=== PATIENT | female | born 1990 | race Caucasian/White ===

== ENCOUNTER 2019-09-14 09:31 | Outpatient (CLI) | payer OTHER, SELFPAY ==
--- NOTE | ~2019-09-14 | CT_ITS ---
EXAMINATION: CT abdomen w con EXAM DATE: 09/14/2019 10:18 INDICATION: Liver lesion, abnormal sonogram. Abdominal pain. TECHNIQUE: Spiral CT of the abdomen was performed following intravenous injection of 100 mL Omnipaque 350. Axial, coronal and sagittal images were reviewed. The dose-length product (DLP) for this exam ination was 219.33 mGy-cm. The exposure was tailored according to patient size (auto mA exposure con trol), and iterative reconstruction (ASIR) was used as additional dose reduction technique. There is no prior study for comparison. FINDINGS: Mild diffusely heterogeneous enhancement to the regions of right liver lobe, nonspecific fi nding. There are 2 subcentimeter liver hypodensities which could be cysts, are too small to confirm a s such on this examination. These are statistically most likely benign. Would be helpful to review th e abnormal ultrasound exam and/or its report from outside institution to determine lesions this size correspond to areas of concern. There are no suspicious liver lesions. Spleen, pancreas, adrenal glan ds are unremarkable. Gallbladder is unremarkable. No biliary obstruction. Portal and splenic veins are patent. Kidneys enhance symmetrically. There is no hydronephrosis. There is no retroperitone al lymphadenopathy. The stomach and small bowel are unremarkable. There is expected amount of colonic stool. No free i ntraperitoneal gas. The heart is normal in size. There are no pericardial or pleural effusions. S mall amount of lingular and right middle lobe atelectasis. The bones are unremarkable. IMPRESSION: 1. Mildly heterogeneous enhancement to regions of right liver lobe, a nonspecific finding. 2. Several nonspecific subcentimeter liver lesions. Most likely benign. Reviewed, dictated and finalized at location A. IMPRESSION: 1. Mildly heterogeneous enhancement to regions of right liver lobe, a nonspeci fic finding. 2. Several nonspecific subcentimeter liver lesions. Most likely benign.
== END 2019-09-14 09:32 | disposition home or self-care (01) ==
LOC: ANHIMG 09:33
PROVIDERS: PCP Internal Medicine; Visit Provider Internal Medicine
DX: R93.2 Abnormal findings on diagnostic imaging of liver and biliary tract (principal); R10.9 Unspecified abdominal pain
CPT/HCPCS: 74160; Q9967